=== PATIENT | female | born 1990 | race Caucasian/White ===

== ENCOUNTER 2017-06-23 06:32 | Inpatient (IN) | payer MEDICAID ==
[2017-06-23] MEDS ORDERED: Sodium Chloride 0.9% 10 ML Syringe FLUSH PRN (07:50)
[2017-06-23] MEDS ORDERED: fentaNYL 100 MCG/2 ML SDV EPIDUR PRN (07:51)
[2017-06-23] MEDS ORDERED: diphenhydrAMINE 50 MG/ML SDV IVPUSH PRN (07:51)
[2017-06-23] MEDS ORDERED: ePHEDrine 50 MG/ML SDV IVPUSH PRN (07:51)
[2017-06-23] MEDS ORDERED: Bupivacaine/fentaNYL/NS 100 ML Bag EPIDUR SCH (08:00)
--- NOTE | 2017-06-23 08:00 | PCM.LDHP ---
L&D History of Present Illness - General Date of Service: 06/23/17 Admit Problem/Dx: Patient Status Order with Admit Dx/Problem 06/23/17 07:52 Patient Status [ADT] Routine Admission Diagnosis/Problem Admission Diagnosis/Problem 06/23/17 07:55 26 yo at 40 w 6 d presents for augmentation of labor. She has intermittent contractions at home. good movement. no vaginal bleeding. no leakage of fluid. routine care complicated by uncertain LMP. EDC based on 8 week ultrasound. O neg GBS neg GTT passed Source of Information: Patient History Limitations: Reports: No Limitations - History of Present Illness Location, : Reports: Abdomen Quality: Reports: Ache Severity: Mild Improves with: Reports: None Worsens with: Reports: None Associated Symptoms: Denies: vaginal bleeding, vaginal tissue, vaginal fluid - Related Data Allergies/Adverse Reactions: Allergies Allergy/AdvReac Type Severity Reaction Status Date / Time amoxicillin AdvReac Lightheaded Verified 06/23/17 07:54 ness cephalexin AdvReac Nausea and Verified 06/23/17 07:54 Vomiting Penicillins AdvReac Lightheaded Verified 06/23/17 07:54 ness Home Medications: Home Meds Pnv95/Iron Fum/Folic Acid [ Caplet] 12/30/15 [History] Psyllium Husk [Fiber] 12/30/15 [History] Ranitidine HCl [Ranitidine] 150 mg PO BID 12/30/15 [History] Past Medical History HEENT History: Reports: None Cardiovascular History: Reports: None Respiratory History: Reports: None Gastrointestinal History: Reports: GERD Genitourinary History: Reports: None : 2 Para: 1 Musculoskeletal History: Reports: None Neurological History: Reports: None Psychiatric History: Reports: None Endocrine/Metabolic History: Reports: Obesity/BMI 30+ - Infectious Disease History Infectious Disease History: Reports: Chicken Pox - Past Surgical History HEENT Surgical History: Reports: Other (See Below) Musculoskeletal Surgical History: Reports: Arthroscopic Knee Social & Family History - Tobacco Use Smoking Status *Q: Never Smoker Second Hand Smoke Exposure: No - Recreational Drug Use Recreational Drug Use: No - Living Situation & Occupation Occupation: Student H&P Review of Systems - Review of Systems: Review Of Systems: See Below General: Reports: No Symptoms HEENT: Reports: No Symptoms Pulmonary: Reports: No Symptoms Cardiovascular: Reports: No Symptoms Gastrointestinal: Reports: No Symptoms Genitourinary: Reports: No Symptoms Musculoskeletal: Reports: No Symptoms Skin: Reports: No Symptoms Psychiatric: Reports: No Symptoms Neurological: Reports: No Symptoms Hematologic/Lymphatic: Reports: No Symptoms Immunologic: Reports: No Symptoms L&D Exam - Exam Exam: See Below - OB Specific Contraction Intensity: Mild to Moderate Movement: Active Heart Tones: Present Heart Tones per Min: 120 Heart Rate (FHR) Variability: Moderate (6-25 bmp) Presentation: Vertex Estimated Weight: 3250 - Greenberg Score Greenberg Score Cervix Position: Midposition Greenberg Score Consistency: Soft Greenberg Score Effacement: 51-70% Greenberg Score Dilation: 3-4 cm Greenberg Score Infant's Station: -1 ,0 Greenberg Score Total: 9 - Exam General: Alert Rectal Exam: Normal Exam Genitourinary: Normal external exam Back Exam: Normal Inspection Extremities: No Pedal Edema Skin: Warm, Dry - Problem List (1) SNOMED Code(s): 50850436 ICD Code: Z34.90 - ENCNTR FOR SUPRVSN OF NORMAL , UNSP, UNSP TRIMESTER Status: Acute Current Visit: Yes Problem List Initiated/Reviewed/Updated: Yes Orders Last 24hrs: Active Orders 24 hr Category Date Time Status Patient Status [ADT] Routine ADT 06/23/17 07:52 Ordered Activity as Tolerated [RC] PFP Care 06/23/17 07:52 Ordered Communication Order [RC] ASDIRECTED Care 06/23/17 07:50 Active Communication Order [RC] ASDIRECTED Care 06/23/17 07:52 Ordered Cooling Warming Measures [RC] ASDIRECTED Care 06/23/17 07:50 Active Heart Tones [RC] ASDIRECTED Care 06/23/17 07:53 Ordered Notify Provider [RC] ASDIRECTED Care 06/23/17 07:50 Active Notify Provider [RC] PFP Care 06/23/17 07:52 Ordered Notify Provider [RC] PRN Care 06/23/17 07:52 Ordered Oxygen Therapy [RC] ASDIRECTED Care 06/23/17 07:50 Active Peripheral IV Care [RC] . DIRECTED Care 06/23/17 07:53 Ordered Pulse Oximetry [RC] ASDIRECTED Care 06/23/17 07:50 Active Verify Patient Consent Obtain [RC] ASDIRECTED Care 06/23/17 07:50 Active Vital Signs [RC] PER UNIT ROUTINE Care 06/23/17 07:52 Ordered Vital Signs [RC] Q1H Care 06/23/17 07:50 Active Bupivacaine/fentaNYL/NS [fentaNYL/Bupivacaine/NS 2 MCG- Med 06/23/17 08:00 Ordered 0.125% 100 ML] 100 ml EPIDUR ASDIRECTED Lactated Ringers [Ringers, Lactated] 1,000 ml Med 06/23/17 08:00 Ordered IV ASDIRECTED Sodium Chloride 0.9% [Saline Flush] Med 06/23/17 07:50 Ordered 10 ml FLUSH ASDIRECTED PRN diphenhydrAMINE [Benadryl] Med 06/23/17 07:51 Ordered 25 mg IVPUSH Q6H PRN ePHEDrine [ePHEDrine Sulfate] Med 06/23/17 07:51 Ordered 5 mg IVPUSH ASDIRECTED PRN fentaNYL [Sublimaze] Med 06/23/17 07:51 Ordered 100 mcg EPIDUR Q3H PRN Electronic Heart Tones Ext w TOCO [WOMSER] Oth 06/23/17 07:52 Ordered Routine Electronic Heart Tones Internal [WOMSER] Per Unit Oth 06/23/17 07:52 Ordered Routine Peripheral IV Insertion Adult [OM.PC] Routine Oth 06/23/17 07:52 Ordered Resuscitation Status Routine Resus Stat 06/23/17 07:50 Ordered Medication Orders Diphenhydramine HCl (Benadryl) 25 mg IVPUSH Q6H PRN PRN Reason: Itching Ephedrine Sulfate (Ephedrine Sulfate) 5 mg IVPUSH ASDIRECTED PRN PRN Reason: HYPOTENTSION Fentanyl (Sublimaze) 100 mcg EPIDUR Q3H PRN PRN Reason: PAIN Fentanyl/Bupivacaine HCl (Fentanyl/Bupivacaine/Ns 2 Mcg-0.125% 100 Ml) 100 ml EPIDUR ASDIRECTED TRE Lactated Ringer's (Ringers, Lactated) 1,000 mls @ 100 mls/hr IV ASDIRECTED TRE Sodium Chloride (Saline Flush) 10 ml FLUSH ASDIRECTED PRN PRN Reason: Keep Vein Open Assessment/Plan Comment:: 27 yo at 40w6d presents for augmentation of labor. Plan: AROM performed with clear fluid expectant management. gbs negative pain control as desired by patient.
--- NOTE | 2017-06-23 08:07 | PCM.PREANE ---
Preanesthetic Assessment - Anesthesia/Transfusion/Family Hx Anesthesia History: Prior Anesthesia Without Reaction Family History of Anesthesia Reaction: No Transfusion History: No Prior Transfusion(s) - Review of Systems General: No Symptoms Pulmonary: No Symptoms Cardiovascular: No Symptoms Gastrointestinal: No Symptoms Neurological: No Symptoms Other: Reports: None - Physical Assessment Pulse: 78 O2 Sat by Pulse Oximetry: 97 Respiratory Rate: 16 Blood Pressure: 130/83 Temperature: 36.3 C Height: 1.68 cm Weight: 91.6 kg ASA Class: 2 Mental Status: Alert & Oriented x3 Airway Class: Mallampati = 1 Dentition: Reports: Normal Dentition Thyro-Mental Finger Breadths: 3 Mouth Opening Finger Breadths: 3 ROM/Head Extension: Full Lungs: Clear to Auscultation, Normal Respiratory Effort Cardiovascular: Regular Rate, Regular Rhythm, No Murmurs - Allergies Allergies/Adverse Reactions: Allergies Allergy/AdvReac Type Severity Reaction Status Date / Time amoxicillin AdvReac Lightheaded Verified 06/23/17 07:54 ness cephalexin AdvReac Nausea and Verified 06/23/17 07:54 Vomiting Penicillins AdvReac Lightheaded Verified 06/23/17 07:54 ness - Anesthesia Plan Pre-Op Medication Ordered: None - Acknowledgements Anesthesia Type Planned: Epidural PreAnesthesia Questionnaire HEENT History: Reports: None Cardiovascular History: Reports: None Respiratory History: Reports: None Gastrointestinal History: Reports: GERD Genitourinary History: Reports: None Musculoskeletal History: Reports: None Neurological History: Reports: None Psychiatric History: Reports: None Endocrine/Metabolic History: Reports: Obesity/BMI 30+ - Infectious Disease History Infectious Disease History: Reports: Chicken Pox - Past Surgical History HEENT Surgical History: Reports: Other (See Below) Musculoskeletal Surgical History: Reports: Arthroscopic Knee - SUBSTANCE USE Smoking Status *Q: Never Smoker Tobacco Use Within Last Twelve Months: No Second Hand Smoke Exposure: No Recreational Drug Use History: No - HOME MEDS Home Medications: Home Meds Pnv95/Iron Fum/Folic Acid [ Caplet] 1 tab PO DAILY 12/30/15 [History] Docusate Sodium [Colace] 100 mg PO DAILY 06/23/17 [History] - CURRENT (IN HOUSE) MEDS Current Meds: Current Medications Diphenhydramine HCl (Benadryl) 25 mg IVPUSH Q6H PRN PRN Reason: Itching Ephedrine Sulfate (Ephedrine Sulfate) 5 mg IVPUSH ASDIRECTED PRN PRN Reason: HYPOTENTSION Fentanyl (Sublimaze) 100 mcg EPIDUR Q3H PRN PRN Reason: PAIN Fentanyl/Bupivacaine HCl (Fentanyl/Bupivacaine/Ns 2 Mcg-0.125% 100 Ml) 100 ml EPIDUR ASDIRECTED TRE Lactated Ringer's (Ringers, Lactated) 1,000 mls @ 100 mls/hr IV ASDIRECTED TRE Sodium Chloride (Saline Flush) 10 ml FLUSH ASDIRECTED PRN PRN Reason: Keep Vein Open
[2017-06-23] MEDS: Lactated Ringers 1,000 ML IV SCH ×2 (11:58→12:56)
[2017-06-23] MEDS ORDERED: Oxytocin/Lactated Ringers 10 UNIT/1,000 ML BAG IV ONE (16:13)
[2017-06-23] MEDS ORDERED: Oxytocin/Lactated Ringers 10 UNIT/1,000 ML BAG IV SCH (16:15)
--- NOTE | 2017-06-23 17:29 | PCM.DEL ---
L & D Note - General Info Date of Service: 06/23/17 Mother's Due Date: 06/17/17 - Delivery Note Labor: Augmented by ARM Delivery Outcome: Livebirth Delivery Method: Spontaneous Vaginal Delivery-Single Infant Delivery Mode: Spontaneous Presentation: Left Occiput Anterior (TENA) Nuchal Cord: None Anesthesia Type: Epidural Laceration: 2nd Degree Suture type: Vicryl Suture size: 3-0 Placenta: Intact Cord: 3 Vessels Estimated Blood Loss: 400 Resuscitation Needed: No : Bulb Syringe Score 1 min: 8 Score 5 min: 9 - General Info Date of Service: 06/23/17 Admission Dx/Problem (Free Text): on 06/23/2017 at 1648 this 27 yo G2now P2 female delivered a viable male weight 8lb 11ounces under epidural anesthesia. Apgars were 8 and 9 at 1 and 5 minutes respectively. Delivery was via to a sterile field. Mild shoulder dystocia, lasting less than 1 minute, reduced with elevated legs and suprapubic pressure. was placed on mom's abdomen and cried immediately with stimulation. cord was clamped and cut. cord blood was obtained. an intact placenta with a 3 vessel cord delivered spontaneously at 1653. 10 units of pitocin was administered IV. Vagina was found to have a 2nd degree laceration repaired in the usual fashion with 3-0 vicryl suture. EBL 400 ml. and mother in stable condition in delivery room at this time. Mother GBS neg, O negative. STD negative. - Patient Data Vitals - Most Recent: Last Vital Signs Temp 36.3 C 06/23/17 10:43 Pulse 78 06/23/17 10:43 Resp 16 06/23/17 10:43 BP 130/83 06/23/17 10:43 Pulse Ox 97 06/23/17 10:43 Weight - Most Recent: 91.172 kg Lab Results Last 24 Hours: Laboratory Results - last 24 hr 06/23/17 Range/Units 10:30 WBC 7.63 (3.98-10.04) K/mm3 RBC 4.31 (3.98-5.22) M/mm3 Hgb 12.3 (11.2-15.7) gm/L Hct 36.9 (34.1-44.9) % MCV 85.6 (79.4-94.8) fl MCH 28.5 (25.6-32.2) pg MCHC 33.3 (32.2-35.5) g/dl RDW Std Deviation 42.2 (36.4-46.3) fL Plt Count 147 L (182-369) K/mm3 MPV 11.7 (9.4-12.3) fl Neut % (Auto) 66.7 (34.0-71.1) % Lymph % (Auto) 23.7 (19.3-51.7) % Tama % (Auto) 8.3 (4.7-12.5) % Eos % (Auto) 0.8 (0.7-5.8) Baso % (Auto) 0.1 (0.1-1.2) % Neut # (Auto) 5.09 (1.56-6.13) K/mm3 Lymph # (Auto) 1.81 (1.18-3.74) K/mm3 Tama # (Auto) 0.63 H (0.24-0.36) K/mm3 Eos # (Auto) 0.06 (0.04-0.36) K/mm3 Baso # (Auto) 0.01 (0.01-0.08) K/mm3 Med Orders - Current: Current Medications Diphenhydramine HCl (Benadryl) 25 mg IVPUSH Q6H PRN PRN Reason: Itching Ephedrine Sulfate (Ephedrine Sulfate) 5 mg IVPUSH ASDIRECTED PRN PRN Reason: HYPOTENTSION Fentanyl (Sublimaze) 100 mcg EPIDUR Q3H PRN PRN Reason: PAIN Last Admin: 06/23/17 12:58 Dose: 100 mcg Fentanyl/Bupivacaine HCl (Fentanyl/Bupivacaine/Ns 2 Mcg-0.125% 100 Ml) 100 ml EPIDUR ASDIRECTED TRE Last Admin: 06/23/17 12:58 Dose: 100 ml Lactated Ringer's (Ringers, Lactated) 1,000 mls @ 100 mls/hr IV ASDIRECTED TRE Last Admin: 06/23/17 12:56 Dose: 100 mls/hr Oxytocin/Lactated Ringer's (Pitocin In Lr 10 Units/1,000 Ml) 10 unit in 1,000 mls @ 3,000 mls/hr IV TITRATE TRE; Protocol Sodium Chloride (Saline Flush) 10 ml FLUSH ASDIRECTED PRN PRN Reason: Keep Vein Open Discontinued Medications Oxytocin/Lactated Ringer's (Pitocin In Lr 10 Units/1,000 Ml) Confirm Administered Dose 10 unit in 1,000 mls @ as directed IV .STK-MED ONE Stop: 06/23/17 16:14 - Problem List & Annotations (1) SNOMED Code(s): 25258192 Code(s): Z34.90 - ENCNTR FOR SUPRVSN OF NORMAL , UNSP, UNSP TRIMESTER Status: Acute Current Visit: Yes - Problem List Review Problem List Initiated/Reviewed/Updated: Yes - My Orders Last 24 Hours: My Active Orders 06/23/17 07:50 Sodium Chloride 0.9% [Saline Flush] 10 ml FLUSH ASDIRECTED PRN Resuscitation Status Routine 06/23/17 07:52 Patient Status [ADT] Routine Activity as Tolerated [RC] PFP Communication Order [RC] ASDIRECTED Notify Provider [RC] PFP Notify Provider [RC] PRN Electronic Heart Tones Ext w TOCO [WOMSER] Routine Electronic Heart Tones Internal [WOMSER] Per Unit Routine Peripheral IV Insertion Adult [OM.PC] Routine 06/23/17 07:53 Peripheral IV Care [RC] . DIRECTED 06/23/17 08:00 Lactated Ringers [Ringers, Lactated] 1,000 ml IV ASDIRECTED 06/23/17 16:15 Oxytocin/Lactated Ringers [Pitocin in LR 10 Units/1,000 ML] 10 unit in 1,000 ml IV TITRATE 06/23/17 Lunch Regular Diet [DIET] - Plan Plan:: 27 yo at 40w6d presents for augmentation of labor. Plan: AROM performed with clear fluid expectant management. gbs negative pain control as desired by patient.
[2017-06-23] MEDS ORDERED: Benzocaine/Menthol 20%-0.5% Spray 56 GM Canister TOP PRN (17:32)
[2017-06-23] MEDS ORDERED: Witch Hazel Medicated Pads 100/Jar TOP PRN (17:32)
[2017-06-23] MEDS ORDERED: Acetaminophen 325 MG Tab PO PRN (17:32)
[2017-06-23] MEDS ORDERED: Lanolin 100% Cream 7 GM Tube TOP PRN (17:32)
[2017-06-23] MEDS: Ibuprofen 600 MG Tab PO PRN (20:41)
[2017-06-23] MEDS: Docusate Sodium 100 MG Cap PO PRN (20:42)
[2017-06-24] MEDS: Ibuprofen 600 MG Tab PO PRN ×4 (01:30→21:34)
[2017-06-24] MEDS ORDERED: Bupivacaine 0.25% 10 ML SDV ONE (07:00)
[2017-06-24] MEDS ORDERED: Lidocaine 1.5% with EPINEPHrine 1:200,000 5 ML Amp ONE (07:00)
--- NOTE | 2017-06-24 11:04 | PCM48HPAN ---
Post Anesthesia Note - EVALUATION WITHIN 48HRS OF ANESTHETIC Vital Signs in Normal Range: Yes Patient Participated in Evaluation: Yes Respiratory Function Stable: Yes Airway Patent: Yes Cardiovascular Function Stable: Yes Hydration Status Stable: Yes Pain Control Satisfactory: Yes Nausea and Vomiting Control Satisfactory: Yes Mental Status Recovered: Yes Pulse Rate: 68 Resp Rate: 14 Temperature: 97.2 F Blood Pressure: 107/92
--- NOTE | 2017-06-24 12:33 | PCM.PNPP ---
- General Info Date of Service: 06/24/17 Admission Dx/Problem (Free Text): 27 yo at PPD #1 s/p NVP with 2nd degree laceration and shoulder dystocia. Pain controlled. Lochia normal Functional Status: Reports: Pain Controlled, Tolerating Diet, Ambulating, Urinating - Review of Systems General: Reports: No Symptoms Pulmonary: Reports: No Symptoms Cardiovascular: Reports: No Symptoms Genitourinary: Reports: No Symptoms Musculoskeletal: Reports: No Symptoms Psychiatric: Reports: No Symptoms - General Info Date of Service: 06/24/17 - Patient Data Vital Signs - Most Recent: Last Vital Signs Temp 36.2 C 06/24/17 11:04 Pulse 68 06/24/17 11:04 Resp 14 06/24/17 11:04 BP 107/92 H 06/24/17 11:04 Pulse Ox 99 06/24/17 01:32 Weight - Most Recent: 91.172 kg I&O - Last 24 Hours: Intake & Output 06/23/17 06/24/17 06/24/17 22:59 06:59 14:59 Intake Total 2502 Balance 2502 Lab Results - Last 24 Hours: Laboratory Results - last 24 hr 06/23/17 06/24/17 Range/Units 19:52 06:00 Hgb 10.6 L (11.2-15.7) gm/L Hct 32.0 L (34.1-44.9) % Blood Type O NEGATIVE Gel Antibody Screen Negative Screen 0 ros/5 flds - neg RhIG Candidate? Yes Rhogam Indicated Yes, baby rh pos H Med Orders - Current: Current Medications Acetaminophen (Tylenol) 650 mg PO Q4H PRN PRN Reason: mild pain or fever Benzocaine/Menthol (Dermoplast Pain Relief [place]) 0 gm TOP ASDIRECTED PRN PRN Reason: Perineal Comfort Measure Last Admin: 06/23/17 19:14 Dose: 1 can Docusate Sodium (Colace) 100 mg PO BID PRN PRN Reason: Constipation Last Admin: 06/23/17 20:42 Dose: 100 mg Emollient Ointment (Lansinoh Hpa) 0 gm TOP ASDIRECTED PRN PRN Reason: Sore Nipples Last Admin: 06/24/17 07:40 Dose: 1 tube Ibuprofen (Motrin) 600 mg PO Q4H PRN PRN Reason: Mild pain or fever Last Admin: 06/24/17 07:37 Dose: 600 mg Witch Mony (Tucks) 1 pad TOP ASDIRECTED PRN PRN Reason: Hemorrhoid pain Last Admin: 06/23/17 19:14 Dose: 1 box Discontinued Medications Diphenhydramine HCl (Benadryl) 25 mg IVPUSH Q6H PRN PRN Reason: Itching Ephedrine Sulfate (Ephedrine Sulfate) 5 mg IVPUSH ASDIRECTED PRN PRN Reason: HYPOTENTSION Fentanyl (Sublimaze) 100 mcg EPIDUR Q3H PRN PRN Reason: PAIN Last Admin: 06/23/17 12:58 Dose: 100 mcg Fentanyl/Bupivacaine HCl (Fentanyl/Bupivacaine/Ns 2 Mcg-0.125% 100 Ml) 100 ml EPIDUR ASDIRECTED TRE Last Admin: 06/23/17 12:58 Dose: 100 ml Lactated Ringer's (Ringers, Lactated) 1,000 mls @ 100 mls/hr IV ASDIRECTED TRE Last Admin: 06/23/17 12:56 Dose: 100 mls/hr Oxytocin/Lactated Ringer's (Pitocin In Lr 10 Units/1,000 Ml) Confirm Administered Dose 10 unit in 1,000 mls @ as directed IV .ST-MED ONE Stop: 06/23/17 16:14 Oxytocin/Lactated Ringer's (Pitocin In Lr 10 Units/1,000 Ml) 10 unit in 1,000 mls @ 3,000 mls/hr IV TITRATE TRE; Protocol Last Admin: 06/23/17 16:48 Dose: 500 munits/min, 500 mls/hr Sodium Chloride (Saline Flush) 10 ml FLUSH ASDIRECTED PRN PRN Reason: Keep Vein Open - Interaction Disposition, : in Room with Family Interaction: Holding Infant Feeding: Attempted ; Nursed Fair/Poor, Continues to Breastfeed Support Person: - Recovery Exam Fundal Tone: Firm Fundal Level: 1 Fingerbreadths Below Umbilicus Fundal Placement: Midline Lochia Amount: Small Lochia Color: Rubra/Red Perineum Description: Edematous, Other (see below) Other Perinuem Description: 2 nd degree using ice, dermplast and tucks Episiotomy/Laceration: Approximated Bladder Status: Voiding Urinary Elimination: Voided - Exam General: Alert, Oriented Extremities: Normal Inspection, No Pedal Edema - Problem List & Annotations (1) SNOMED Code(s): 75385471 Code(s): Z34.90 - ENCNTR FOR SUPRVSN OF NORMAL , UNSP, UNSP TRIMESTER Status: Acute Current Visit: Yes (2) Second degree perineal laceration SNOMED Code(s): 6777159 Code(s): O70.1 - SECOND DEGREE PERINEAL LACERATION DURING DELIVERY Status: Acute Current Visit: Yes (3) Second degree perineal laceration during delivery SNOMED Code(s): 8394775 Code(s): O70.1 - SECOND DEGREE PERINEAL LACERATION DURING DELIVERY Status: Acute Current Visit: Yes (4) Shoulder dystocia, delivered SNOMED Code(s): 651587705 Code(s): O66.0 - OBSTRUCTED LABOR DUE TO SHOULDER DYSTOCIA Status: Acute Current Visit: Yes - Problem List Review Problem List Initiated/Reviewed/Updated: Yes - My Orders Last 24 Hours: My Active Orders 06/23/17 17:32 Patient Status [ADT] Routine Activity as Tolerated [RC] PER UNIT ROUTINE Vital Signs [RC] 09,15,21,03 Acetaminophen [Tylenol] 650 mg PO Q4H PRN Benzocaine/Menthol [Dermoplast Pain Relief [place]] See Dose Instructions TOP ASDIRECTED PRN Docusate Sodium [Colace] 100 mg PO BID PRN Ibuprofen [Motrin] 600 mg PO Q4H PRN Lanolin [Lansinoh HPA] See Dose Instructions TOP ASDIRECTED PRN Witch Mony [Tucks] 1 pad TOP ASDIRECTED PRN Assess Lochia [WOMSER] Per Unit Routine Assess Uterine Involution [WOMSER] Per Unit Routine Breast Pump [WOMSER] Per Unit Routine Medication Administration Instruction [OM.PC] Routine Perineal Care [OM.PC] Per Unit Routine Sitz Bath [OM.PC] Per Unit Routine Resuscitation Status Routine 06/23/17 17:45 Heat Therapy [OM.PC] PRN 06/24/17 17:45 Heat Therapy [OM.PC] PRN - Plan Plan:: 27 yo at 40w6d presents for augmentation of labor. Plan: AROM performed with clear fluid expectant management. gbs negative pain control as desired by patient. 06/24/2017 PPD#1 s/p with shoulder dystocia -nursing fair. continued support. mildly elevated diastolic blood pressure-asymptomatic. continue to monitor.
[2017-06-24] MEDS: Docusate Sodium 100 MG Cap PO PRN (21:33)
[2017-06-25] MEDS: Ibuprofen 600 MG Tab PO PRN (05:56)
--- NOTE | 2017-06-25 07:29 | PCM.DCSUM1 ---
Discharge Summary - Hospital Course Free Text/Narrative:: 27 yo at PPD #2 s/p with 2nd degree laceration. pain controlled. lochia normal. fairly. O neg GBS neg - Discharge Data Discharge Date: 06/25/17 Discharge Disposition: Home, Self-Care 01 Condition: Good - Discharge Diagnosis/Problem(s) (1) SNOMED Code(s): 42655012 ICD Code: Z34.90 - ENCNTR FOR SUPRVSN OF NORMAL , UNSP, UNSP TRIMESTER Status: Resolved Current Visit: Yes (2) Second degree perineal laceration during delivery SNOMED Code(s): 2407548 ICD Code: O70.1 - SECOND DEGREE PERINEAL LACERATION DURING DELIVERY Status : Acute Current Visit: Yes (3) Shoulder dystocia, delivered SNOMED Code(s): 149779074 ICD Code: O66.0 - OBSTRUCTED LABOR DUE TO SHOULDER DYSTOCIA Status: Acute Current Visit: Yes - Patient Instructions Diet: Usual Diet as Tolerated Activity: As Tolerated Driving: May Drive Today Showering/Bathing: May Shower Notify Provider of: Fever, Increased Pain, Swelling and Redness, Drainage, Nausea and/or Vomiting - Discharge Plan Home Medications: Home Meds Pnv95/Iron Fum/Folic Acid [ Caplet] 1 tab PO DAILY 12/30/15 [History] Docusate Sodium [Colace] 100 mg PO DAILY 06/23/17 [History] Acetaminophen [Tylenol] 650 mg PO Q4H PRN tablet 06/25/17 [Rx] Benzocaine/Menthol [Dermoplast Pain Relief Barlow] 1 applic TOP ASDIRECTED PRN # 1 canister 06/25/17 [Rx] Ibuprofen [IJD: Ibuprofen] 600 mg PO Q4H PRN tablet 06/25/17 [Rx] Lanolin [Lansinoh HPA] 1 applic TOP ASDIRECTED PRN #1 tube 06/25/17 [Rx] Witch Mony [Tucks] 1 pad TOP ASDIRECTED PRN pad 06/25/17 [Rx] Patient Handouts: Vaginal Delivery Referrals: Heydi Pimentel MD [Primary Care Provider] - (6-8 weeks for routine exam. sooner if any concerns. ) - Discharge Summary/Plan Comment DC Time >30 min.: No - General Info Date of Service: 06/25/17 Functional Status: Reports: Pain Controlled - Review of Systems General: Reports: No Symptoms Cardiovascular: Reports: No Symptoms Gastrointestinal: Reports: No Symptoms Genitourinary: Reports: No Symptoms Neurological: Reports: No Symptoms - Patient Data Vitals - Most Recent: Last Vital Signs Temp 36.4 C 06/25/17 02:43 Pulse 67 06/25/17 02:43 Resp 16 06/25/17 02:43 BP 134/85 06/25/17 02:43 Pulse Ox 98 06/25/17 02:43 Weight - Most Recent: 91.172 kg Med Orders - Current: Current Medications Acetaminophen (Tylenol) 650 mg PO Q4H PRN PRN Reason: mild pain or fever Benzocaine/Menthol (Dermoplast Pain Relief Barlow) 0 gm TOP ASDIRECTED PRN PRN Reason: Perineal Comfort Measure Last Admin: 06/23/17 19:14 Dose: 1 can Docusate Sodium (Colace) 100 mg PO BID PRN PRN Reason: Constipation Last Admin: 06/24/17 21:33 Dose: 100 mg Emollient Ointment (Lansinoh Hpa) 0 gm TOP ASDIRECTED PRN PRN Reason: Sore Nipples Last Admin: 06/24/17 07:40 Dose: 1 tube Ibuprofen (Motrin) 600 mg PO Q4H PRN PRN Reason: Mild pain or fever Last Admin: 06/25/17 05:56 Dose: 600 mg Witch Mony (Tucks) 1 pad TOP ASDIRECTED PRN PRN Reason: Hemorrhoid pain Last Admin: 06/23/17 19:14 Dose: 1 box Discontinued Medications Diphenhydramine HCl (Benadryl) 25 mg IVPUSH Q6H PRN PRN Reason: Itching Ephedrine Sulfate (Ephedrine Sulfate) 5 mg IVPUSH ASDIRECTED PRN PRN Reason: HYPOTENTSION Fentanyl (Sublimaze) 100 mcg EPIDUR Q3H PRN PRN Reason: PAIN Last Admin: 06/23/17 12:58 Dose: 100 mcg Fentanyl/Bupivacaine HCl (Fentanyl/Bupivacaine/Ns 2 Mcg-0.125% 100 Ml) 100 ml EPIDUR ASDIRECTED TRE Last Admin: 06/23/17 12:58 Dose: 100 ml Lactated Ringer's (Ringers, Lactated) 1,000 mls @ 100 mls/hr IV ASDIRECTED TRE Last Admin: 06/23/17 12:56 Dose: 100 mls/hr Oxytocin/Lactated Ringer's (Pitocin In Lr 10 Units/1,000 Ml) Confirm Administered Dose 10 unit in 1,000 mls @ as directed IV .STK-MED ONE Stop: 06/23/17 16:14 Oxytocin/Lactated Ringer's (Pitocin In Lr 10 Units/1,000 Ml) 10 unit in 1,000 mls @ 3,000 mls/hr IV TITRATE TRE; Protocol Last Admin: 06/23/17 16:48 Dose: 500 munits/min, 500 mls/hr Sodium Chloride (Saline Flush) 10 ml FLUSH ASDIRECTED PRN PRN Reason: Keep Vein Open - Exam General: Reports: Oriented - General Info Date of Service: 06/25/17 - Patient Data Vital Signs - Most Recent: Last Vital Signs Temp 36.4 C 06/25/17 02:43 Pulse 67 06/25/17 02:43 Resp 16 06/25/17 02:43 BP 134/85 06/25/17 02:43 Pulse Ox 98 06/25/17 02:43 Weight - Most Recent: 91.172 kg Med Orders - Current: Current Medications Acetaminophen (Tylenol) 650 mg PO Q4H PRN PRN Reason: mild pain or fever Benzocaine/Menthol (Dermoplast Pain Relief [place]) 0 gm TOP ASDIRECTED PRN PRN Reason: Perineal Comfort Measure Last Admin: 06/23/17 19:14 Dose: 1 can Docusate Sodium (Colace) 100 mg PO BID PRN PRN Reason: Constipation Last Admin: 06/24/17 21:33 Dose: 100 mg Emollient Ointment (Lansinoh Hpa) 0 gm TOP ASDIRECTED PRN PRN Reason: Sore Nipples Last Admin: 06/24/17 07:40 Dose: 1 tube Ibuprofen (Motrin) 600 mg PO Q4H PRN PRN Reason: Mild pain or fever Last Admin: 06/25/17 05:56 Dose: 600 mg Witch Mony (Tucks) 1 pad TOP ASDIRECTED PRN PRN Reason: Hemorrhoid pain Last Admin: 06/23/17 19:14 Dose: 1 box Discontinued Medications Diphenhydramine HCl (Benadryl) 25 mg IVPUSH Q6H PRN PRN Reason: Itching Ephedrine Sulfate (Ephedrine Sulfate) 5 mg IVPUSH ASDIRECTED PRN PRN Reason: HYPOTENTSION Fentanyl (Sublimaze) 100 mcg EPIDUR Q3H PRN PRN Reason: PAIN Last Admin: 06/23/17 12:58 Dose: 100 mcg Fentanyl/Bupivacaine HCl (Fentanyl/Bupivacaine/Ns 2 Mcg-0.125% 100 Ml) 100 ml EPIDUR ASDIRECTED TRE Last Admin: 06/23/17 12:58 Dose: 100 ml Lactated Ringer's (Ringers, Lactated) 1,000 mls @ 100 mls/hr IV ASDIRECTED TRE Last Admin: 06/23/17 12:56 Dose: 100 mls/hr Oxytocin/Lactated Ringer's (Pitocin In Lr 10 Units/1,000 Ml) Confirm Administered Dose 10 unit in 1,000 mls @ as directed IV [facility]: 06/23/17 16:14 Oxytocin/Lactated Ringer's (Pitocin In Lr 10 Units/1,000 Ml) 10 unit in 1,000 mls @ 3,000 mls/hr IV TITRATE TRE; Protocol Last Admin: 06/23/17 16:48 Dose: 500 munits/min, 500 mls/hr Sodium Chloride (Saline Flush) 10 ml FLUSH ASDIRECTED PRN PRN Reason: Keep Vein Open - Interaction Disposition, : [place] in Room with Family Interaction: Holding Infant Feeding: Attempted ; Nursed Fair/Poor, Continues to Breastfeed Support Person: - Recovery Exam Fundal Tone: Firm Fundal Level: 1 Fingerbreadths Below Umbilicus Fundal Placement: Midline Lochia Amount: Small Lochia Color: Rubra/Red Perineum Description: Intact, Minimal Bruising/Swelling Other Perinuem Description: 2 nd degree using ice, dermplast and tucks Episiotomy/Laceration: None Bladder Status: Voiding Urinary Elimination: Voided
[2017-06-25 10:20] VITALS: BP 118/94
== END 2017-06-25 09:36 | disposition home or self-care (01) | DRG 775 ==
LOC: JD.OB 06:32 → OBSVTOIN 16:48 → JD.OB 16:48
PROVIDERS: ADMIT Family Medicine; ATTEND Family Medicine
PROC: 10E0XZZ Delivery of Products of Conception, External Approach (ICD-10-PCS; principal; 2017-06-23)
PROC: 0KQM0ZZ Repair Perineum Muscle, Open Approach (ICD-10-PCS; 2017-06-23)
PROC: 6A550ZT Pheresis of Cord Blood Stem Cells, Single (ICD-10-PCS; 2017-06-23)
PROC: 10907ZC Drainage of Amniotic Fluid, Therapeutic from Products of Conception, Via Natural or Artificial Opening (ICD-10-PCS; 2017-06-23)
PROC: 00HU33Z Insertion of Infusion Device into Spinal Canal, Percutaneous Approach (ICD-10-PCS; 2017-06-23)
PROC: 3E0R3BZ Introduction of Anesthetic Agent into Spinal Canal, Percutaneous Approach (ICD-10-PCS; 2017-06-23)
PROC: 3E0234Z Introduction of Serum, Toxoid and Vaccine into Muscle, Percutaneous Approach (ICD-10-PCS; 2017-06-23)
DX: O66.0 Obstructed labor due to shoulder dystocia (principal); O70.1 Second degree perineal laceration during delivery; Z3A.40 40 weeks gestation of pregnancy; Z37.0 Single live birth; Z88.1 Allergy status to other antibiotic agents; Z79.899 Other long term (current) drug therapy; O99.214 Obesity complicating childbirth; E66.9 Obesity, unspecified; Z68.31 Body mass index [BMI] 31.0-31.9, adult; O26.893 Other specified pregnancy related conditions, third trimester; Z67.41 Type O blood, Rh negative
CPT/HCPCS: 36415; 51701; 59025; 59300; 59409; 85014; 85018; 85025; 85461; 86850; 86900; 86901; A9270-GY; J2590; J2790; J3010; J7120

== ENCOUNTER 2021-05-18 06:53 | Inpatient (IN) | payer BC ==
[~2021-05-18 06:53] MED LIST: Bupivacaine 0.25% 10 ML SDV ONE
[2021-05-18] MEDS ORDERED: Calcium Carbonate 500 MG Tab.Chew PO PRN (07:19)
[2021-05-18] MEDS ORDERED: Ondansetron 4 MG/2 ML SDV IVPUSH PRN (07:19)
[2021-05-18] MEDS ORDERED: Nalbuphine 10 MG/1 ML Vial IVPUSH PRN (07:19)
[2021-05-18] MEDS ORDERED: Sodium Chloride 0.9% 10 ML Syringe FLUSH PRN (07:19)
[2021-05-18] MEDS ORDERED: Oxytocin/Lactated Ringers 10 UNIT/1,000 ML BAG IV SCH ×2 (07:30)
[2021-05-18] MEDS ORDERED: Bupivacaine/fentaNYL/NS 100 ML Bag EPIDUR PRN (07:41)
[2021-05-18] MEDS ORDERED: ePHEDrine 50 MG/ML SDV IVPUSH PRN (07:41)
[2021-05-18] MEDS ORDERED: fentaNYL 100 MCG/2 ML SDV EPIDUR PRN (07:41)
[2021-05-18] MEDS ORDERED: diphenhydrAMINE 50 MG/ML SDV IVPUSH PRN (07:41)
[2021-05-18] MEDS: Lactated Ringers 1,000 ML IV SCH ×4 (08:50→15:00)
[2021-05-18] MEDS ORDERED: Sodium Chloride 0.9% 10 ML Syringe FLUSH SCH (09:00)
[2021-05-18] MEDS ORDERED: Benzocaine/Menthol 20%-0.5% Spray 78 GM Cannister TOP PRN (20:57)
[2021-05-18] MEDS ORDERED: Witch Hazel Medicated Pads 40/Jar TOP PRN (20:57)
[2021-05-18] MEDS: Ibuprofen 600 MG Tab PO PRN (22:14)
[2021-05-18] MEDS: Docusate Sodium 100 MG Cap PO PRN (22:14)
[2021-05-19] MEDS: Acetaminophen 325 MG Tab PO PRN ×4 (01:33→21:06)
[2021-05-19] MEDS: Ibuprofen 600 MG Tab PO PRN ×3 (05:53→18:06)
[2021-05-19] MEDS: Docusate Sodium 100 MG Cap PO PRN (21:06)
[2021-05-20] MEDS: Ibuprofen 600 MG Tab PO PRN (04:27)
[2021-05-20] MEDS: Acetaminophen 325 MG Tab PO PRN (08:34)
[2021-05-20 10:02] VITALS: BP 110/86; PULSE 74
== END 2021-05-20 11:30 | disposition home or self-care (01) | DRG 560 ==
LOC: JD.OBCHECK 06:53 → JD.OB 07:08 → EDSTATUS 09:32 → JD.OB 09:36 → JD.OBCHECK 09:36 → OBSVTOIN 19:40 → JD.OB 19:41
PROVIDERS: ADMIT Obstetrics & Gynecology; ATTEND Obstetrics & Gynecology
PROC: 10E0XZZ Delivery of Products of Conception, External Approach (ICD-10-PCS; principal; 2021-05-18)
PROC: 10907ZC Drainage of Amniotic Fluid, Therapeutic from Products of Conception, Via Natural or Artificial Opening (ICD-10-PCS; 2021-05-18)
PROC: 0HQ9XZZ Repair Perineum Skin, External Approach (ICD-10-PCS; 2021-05-18)
PROC: 3E0R3BZ Introduction of Anesthetic Agent into Spinal Canal, Percutaneous Approach (ICD-10-PCS; 2021-05-18)
PROC: 00HU33Z Insertion of Infusion Device into Spinal Canal, Percutaneous Approach (ICD-10-PCS; 2021-05-18)
PROC: 3E0334Z Introduction of Serum, Toxoid and Vaccine into Peripheral Vein, Percutaneous Approach (ICD-10-PCS; 2021-05-19)
DX: O99.214 Obesity complicating childbirth (principal); O99.62 Diseases of the digestive system complicating childbirth; Z37.0 Single live birth; O70.0 First degree perineal laceration during delivery; K21.9 Gastro-esophageal reflux disease without esophagitis; O26.893 Other specified pregnancy related conditions, third trimester; Z20.822 Contact with and (suspected) exposure to COVID-19; Z3A.39 39 weeks gestation of pregnancy; Z88.0 Allergy status to penicillin; Z88.1 Allergy status to other antibiotic agents; Z67.41 Type O blood, Rh negative
CPT/HCPCS: 01967; 36415; 51702; 59025; 59409; 85025; 85461; 86850; 86870; 86900; 86901; A9270-GY; J2590; J2790; J3010; J3490; J7120; U0002